=== PATIENT | female | born 1990 | race Caucasian/White ===

== ENCOUNTER 2016-12-12 05:41 | Inpatient (IN) | payer MEDICARE ==
[~2016-12-12] VITALS: Ht 167.6 cm; Wt 71.7 kg
[2016-12-12 06:41] LABS: HEMOGLOBIN 14.1 gm/dl (12.3-15.3); RED BLOOD COUNT 4.5 M/UL (4.00-5.10); WHITE BLOOD COUNT 10.3 K/UL (4.5-11.0)
[2016-12-13 03:21] LABS: WHITE BLOOD COUNT 10.2 K/UL (4.5-11.0)
[2016-12-13 03:27] LABS: HEMOGLOBIN 11.8 gm/dl (12.3-15.3); RED BLOOD COUNT 3.84 M/UL (4.00-5.10)
[2016-12-13] MEDS ORDERED: COLACE 100MG C100 MG PO (12:46)
== END 2016-12-13 15:12 | disposition home or self-care (01) | DRG 775 ==
LOC: GENOP 05:41 → OB 06:27
PROVIDERS: Obstetrics & Gynecology; ADMIT Obstetrics & Gynecology
PROC: 10E0XZZ Delivery of Products of Conception, External Approach (ICD-10-PCS; principal; 2016-12-12)
PROC: 00HU33Z Insertion of Infusion Device into Spinal Canal, Percutaneous Approach (ICD-10-PCS; 2016-12-12)
PROC: 3E0R3BZ Introduction of Anesthetic Agent into Spinal Canal, Percutaneous Approach (ICD-10-PCS; 2016-12-12)
DX: O80 Encounter for full-term uncomplicated delivery (principal); Z3A.39 39 weeks gestation of pregnancy; Z37.0 Single live birth
CPT/HCPCS: 36415; 51702; 81001; 82800; 85025; J2300; J2795; J3010; J7120

== ENCOUNTER 2020-06-22 16:46 | Inpatient (IN) | payer OTHER ==
[~2020-06-22] VITALS: Ht 167.6 cm; Wt 71.7 kg
[~2020-06-22 16:46] MED LIST: COLACE 100MG C100 MG PO
[2020-06-22 17:52] LABS: HEMOGLOBIN 12.4 gm/dl (12.3-15.3); RED BLOOD COUNT 4.04 M/UL (4.00-5.10); WHITE BLOOD COUNT 7.7 K/UL (4.5-11.0)
[2020-06-22] MEDS ORDERED: PRENATAL VITAM1 EAC5 PO (18:02)
[2020-06-23] MEDS ORDERED: IBUPROFEN600 MG PO (11:56)
[2020-06-23] MEDS ORDERED: COLACE 100MG C100 MG PO (11:56)
[2020-06-24 06:46] LABS: HEMOGLOBIN 10.9 gm/dl (12.3-15.3)
[2020-06-24] MEDS ORDERED: HYDROCODON-ACE1 EAC4 PO (18:38)
== END 2020-06-24 19:29 | disposition home or self-care (01) | DRG 807 ==
LOC: GENOP 16:46 → OB 17:09
PROVIDERS: ADMIT Obstetrics & Gynecology
PROC: 10E0XZZ Delivery of Products of Conception, External Approach (ICD-10-PCS; principal; 2020-06-22)
PROC: 10907ZC Drainage of Amniotic Fluid, Therapeutic from Products of Conception, Via Natural or Artificial Opening (ICD-10-PCS; 2020-06-22)
PROC: 3E033VJ Introduction of Other Hormone into Peripheral Vein, Percutaneous Approach (ICD-10-PCS; 2020-06-22)
DX: O80 Encounter for full-term uncomplicated delivery (principal); Z37.0 Single live birth; Z3A.39 39 weeks gestation of pregnancy
CPT/HCPCS: 36415; 51702; 81001; 82800; 85014; 85018; 85025; J2300; J2795; U0003